=== PATIENT | female | born 1960 | race Caucasian/White ===

== ENCOUNTER 2017-12-21 08:15 | Day surgery (SDC) | payer MEDICAID ==
[~2017-12-21 08:15] MED LIST: CEFAZOLIN 2 GM/50 ML (PMX) 50 ML IVPB; SOD CHLORIDE 0.9% 1,000 ML IV
[2017-12-21 12:13] LABS: ADD MAN DIFF? NO
[2017-12-21 12:15] LABS: BASOPHILS % 0.5 % (0.0-2.0); EOSINOPHILS # 0.2 10^3/ul (0.0-0.5); EOSINOPHILS % 2.3 % (0.0-7.0); HEMATOCRIT 40.6 % (37.0-47.0); HEMOGLOBIN 14.1 g/dl (12.0-16.0); LYMPHOCYTES # 3.1 10^3/ul (0.8-2.9); MEAN CORPUSCULAR HGB CONC 34.7 g/dl (32.0-37.0); MEAN CORPUSCULAR VOLUME 92.3 fl (82.0-101.0); MONOCYTE # 0.6 10^3/ul (0.3-0.9); NEUTROPHIL # 3.5 10^3/ul (1.6-7.5); NEUTROPHILS % 47.1 % (39.0-77.0); PLATELET COUNT 302 10^3/UL (140-415); RED CELL DISTRIBUTION WIDTH 12.5 % (11.5-14.5)
[2017-12-21 12:15] LABS: WHITE BLOOD COUNT 7.5 10^3/ul (4.8-10.8)
[2017-12-21 12:32] LABS: ALANINE AMINOTRANSFERASE 23 IU/L (13-69); ALBUMIN 4.6 g/dl (3.3-4.9); ALBUMIN/GLOBULIN RATIO 1.21; ALKALINE PHOSPHATASE 92 IU/L (42-121); ANION GAP 16 (8-16); ASPARTATE AMINO TRANSFERASE 23 IU/L (15-46); BILIRUBIN,INDIRECT 0.3 mg/dl (0-1.1); BILIRUBIN,TOTAL 0.3 mg/dl (0.2-1.3); CARBON DIOXIDE 29 mmol/L (21-31); CHLORIDE 105 mmol/L (97-110); GLUCOSE 141 mg/dl (70-220); TOTAL PROTEIN 8.4 g/dl (6.1-8.1)
[2017-12-21 12:33] LABS: BLOOD UREA NITROGEN 12 mg/dl (7-20); CALCIUM 9.1 mg/dl (8.4-10.2); CREATININE 0.53 mg/dl (0.44-1.00); POTASSIUM 4.2 mmol/L (3.5-5.1)
[2017-12-21 12:34] LABS: INR 0.94; PROTIME 12.7 Sec (11.9-14.9)
[2017-12-21 12:35] LABS: PARTIAL THROMBOPLASTIN TIME 27.9 Sec (25.0-35.0); SODIUM 146 mmol/L (135-144)
[2017-12-21] MEDS ORDERED: PROPOFOL 20 ML (15:16)
[2017-12-21] MEDS ORDERED: ONDANSETRON 4 MG INJ (15:16)
[2017-12-21] MEDS ORDERED: METOCLOPRAMIDE 10 MG INJ (15:16)
[2017-12-21] MEDS ORDERED: CEFAZOLIN 1 GM INJ (15:16)
[2017-12-21] MEDS ORDERED: LIDOCAINE 100 MG SYRINGE (15:16)
[2017-12-21] MEDS ORDERED: MEPERIDINE 100 MG INJ (15:16)
[2017-12-21] MEDS ORDERED: OXYCODONE/ACETAMINOPHEN (5/325) TAB PO ×2 (15:30)
[2017-12-21] MEDS ORDERED: EPHEDrine SULFATE 50 MG/5 ML SYG IV (15:30)
[2017-12-21] MEDS ORDERED: MIDAZOLAM 1 MG/ML 2 ML INJ IV (15:30)
[2017-12-21] MEDS ORDERED: DIPHENHYDRAMINE 50 MG INJ IV (15:30)
[2017-12-21] MEDS ORDERED: hydrALAzine 20 MG INJ IV (15:30)
[2017-12-21] MEDS ORDERED: ONDANSETRON 4 MG INJ IV (15:30)
[2017-12-21] MEDS ORDERED: METOCLOPRAMIDE 10 MG INJ IV (15:30)
[2017-12-21] MEDS ORDERED: FENTAnyl 50 MCG/ML VIAL IV ×3 (15:30)
[2017-12-21] MEDS ORDERED: MEPERIDINE 25 MG INJ IV (15:30)
[2017-12-21] MEDS ORDERED: HYDROmorphONE (0.2 MG/ML) 10ML SYG IV ×3 (15:30)
[2017-12-21] MEDS ORDERED: LABETALOL HCL 20MG INJ IV (15:30)
[2017-12-21] MEDS ORDERED: ISOSULFAN BLUE 1% 5 ML INJ SC (16:34)
[2017-12-21] MEDS ORDERED: NALOXONE (0.4 MG/ML) INJ (16:45)
[2017-12-21] MEDS: HYDROCODONE/APAP (7.5/325) TAB PO (17:34)
== END 2017-12-21 17:52 | disposition home or self-care (01) ==
LOC: SDS 08:15
DX: D05.12 Intraductal carcinoma in situ of left breast (principal); E11.9 Type 2 diabetes mellitus without complications; E78.2 Mixed hyperlipidemia; I10 Essential (primary) hypertension; E66.9 Obesity, unspecified; Z68.32 Body mass index [BMI] 32.0-32.9, adult
CPT/HCPCS: 19301; 71045; 80053; 82962; 85025; 85610; 85730; 88307; 93005